=== PATIENT | male | born 1960 | race Caucasian/White ===

== ENCOUNTER 2020-01-30 01:30 | Outpatient (CLI) | payer BC, SELFPAY ==
[2020-01-31 14:16] LABS: SARS-CoV-2 RNA PCR Negative
== END 2020-01-30 01:31 | disposition home or self-care (01) ==
LOC: ANHCOVIDDT 01:30
PROVIDERS: Visit Provider Podiatrist Foot & Ankle Surgery
DX: Z01.818 Encounter for other preprocedural examination (principal); Z11.59 Encounter for screening for other viral diseases
CPT/HCPCS: 87635; C9803; U0003

== ENCOUNTER 2020-02-02 00:57 | Day surgery (SDC) | payer BC, SELFPAY ==
[2020-01-21 18:07] VITALS: BMI 19.8
--- NOTE | 2020-02-01 14:12 | WPDHPUPDATE1 ---
History and Physical Update Update Date/Time: 02/01/20 14:12 History and Physical has been reviewed, including an updated exam of the patient. There are NO changes in the patient's condition. Risks, benefits, and alternatives have been discussed and questions answered. Patient agrees to proceed with procedure.
--- NOTE | 2020-02-02 08:25 | P.PNAN_ITS ---
Anes - Initial Pre Proc Eval Procedure: Operation Date: 02/02/20 12:30 Proposed Procedures p Total Implant Arthroplasty Left First Metatarsal Phalangeal - Jake Condon DPM Date/Time: 02/02/20 08:25 Surgeon: Jake Condon DPM Pre Op Diagnosis: hallux rigidus Left Patient Data Age: 59 Gender: M Height: 1.73 m Weight: 58.97 kg Allergies Allergy/AdvReac Type Severity Reaction Status Date / Time No Known Allergies Allergy Verified 02/02/20 10:37 Home Medications Medication Instructions Recorded Confirmed Type Baby Aspirin 81 mg PO DAILY 01/21/20 01/21/20 History finasteride 5 mg PO DAILY 01/21/20 01/21/20 History simvastatin 20 mg PO DAILY 01/21/20 01/21/20 History Patient hx anesthesia problems: none Family hx anesthesia problems: none [facility] Past Medical History Medical History (Updated 02/02/20 @ 08:25 by Wai Ashton DO) Hyperlipidemia ANT (obstructive sleep apnea) CPAP Social History Social History Smoking status: Never smoker Living arrangements: with family Gender identity (if verbalized by the patient): Male Spiritual care concerns: No Anes - Eval Final PreProcedure Day of Procedure 02/02/20 08:25 Patient weight: thin Heart: regular rate and rhythm Lungs: clear to auscultation and normal air movement Airway: Mallampati scale class II Neurological: alert and oriented Last oral intake: >/= 8 hours ASA classification: III Anesthetic plan: proceed Anesthesia type and monitoring: general GIVS and standard monitoring Informed Consent: The patient's anesthetic plan and its attendant risks and benefits were discussed with the patient/family/POA. Questions were solicited and answers provided to the satisfaction of the patient/family/POA.
[2020-02-02 10:34] VITALS: BP 119/81; PULSE 69; RESP 16; TEMP 36.7; O2SAT 100
[2020-02-02] MEDS: LACTATED RINGERS 1,000 ML 30 ML IV CONT (11:00)
--- NOTE | 2020-02-02 11:00 | ECG_ITS ---
Measurements Intervals [place] Rate: 66 P: 52 GA: 187 QRS: 10 QRSD: 95 T: 38 QT: 379 QTc: 397 Interpretive Statements SINUS RHYTHM NORMAL ECG Electronically Signed On 02-02-2020 12:53:10 [employer] by Gurdeep Conley D.O.
--- NOTE | 2020-02-02 12:30 | PM.IMHP ---
H&P: HPI History of Present Illness Date/Time: 02/02/20 12:30 Chief complaint: hallux rigidus Left Narrative: Blaise Niño is a 59 year old male Review of Systems Review of Systems: Narrative: Hx. of HTN and BPH All systems reviewed & are unremarkable except as noted in HPI and below (HTN and BPH) Constitutional: Constitutional: Reports no additional constitutional complaints ENT: Reports system reviewed and no additional complaints, except as documented Musculoskeletal: Musculoskeletal: Reports arthralgias and Reports limited range of motion Comments: c/o pain left 1st mtp for 1 year Neurologic: Reports system reviewed and no additional complaints, except as documented Hematologic/Lymphatic: Hematologic/Lymphatic: Reports no additional hematologic/lymphatic complaints Allergic/Immunologic: Allergic/Immunologic: Reports no additional allergic/immunologic complaints [facility] Past Medical History Medical History (Updated 02/02/20 @ 08:25 by Wai Ashton DO) Hyperlipidemia ANT (obstructive sleep apnea) CPAP Social History Social History Smoking status: Never smoker Living arrangements: with family Gender identity (if verbalized by the patient): Male Spiritual care concerns: No Meds Home Medications and Allergies Home Medications Medication Instructions Recorded Confirmed Type Baby Aspirin 81 mg PO DAILY 01/21/20 01/21/20 History finasteride 5 mg PO DAILY 01/21/20 01/21/20 History simvastatin 20 mg PO DAILY 01/21/20 01/21/20 History cephalexin [Keflex] 500 mg PO Q8H #20 cap 02/02/20 Rx hydrocodone-acetaminophen [[place]] 1 tablet PO Q4H PRN #20 tablet 02/02/20 Rx Allergies Allergy/AdvReac Type Severity Reaction Status Date / Time No Known Allergies Allergy Verified 02/02/20 10:37 Vital Signs Vital Signs - 24 hr 02/02/20 10:34 Temperature 36.7 C Pulse Rate 69 Respiratory Rate 16 Blood Pressure 119/81 Pulse Oximetry 100 Exam Extrem: Left lower extremity: normal capillary refill Other: Pain and stiffness left 1st mtp Assessment and Plan Additional Plan cheilectomy with implant left 1st mtp under MAC
--- NOTE | 2020-02-02 12:35 | P.HP_ITS ---
H&P: HPI History of Present Illness Date/Time: 02/02/20 12:35 Chief complaint: hallux rigidus Left Narrative: Blaise Niño is a 59 year old male [facility] Past Medical History Medical History (Updated 02/02/20 @ 08:25 by Wai Ashton DO) Hyperlipidemia ANT (obstructive sleep apnea) CPAP Social History Social History Smoking status: Never smoker Living arrangements: with family Gender identity (if verbalized by the patient): Male Spiritual care concerns: No Meds Home Medications and Allergies Home Medications Medication Instructions Recorded Confirmed Type Baby Aspirin 81 mg PO DAILY 01/21/20 01/21/20 History finasteride 5 mg PO DAILY 01/21/20 01/21/20 History simvastatin 20 mg PO DAILY 01/21/20 01/21/20 History cephalexin [Keflex] 500 mg PO Q8H #20 cap 02/02/20 Rx hydrocodone-acetaminophen [[place]] 1 tablet PO Q4H PRN #20 tablet 02/02/20 Rx Allergies Allergy/AdvReac Type Severity Reaction Status Date / Time No Known Allergies Allergy Verified 02/02/20 10:37 Vital Signs Vital Signs - 24 hr 02/02/20 10:34 Temperature 36.7 C Pulse Rate 69 Respiratory Rate 16 Blood Pressure 119/81 Pulse Oximetry 100 Assessment and Plan Additional Plan Hallux limitus left 1st mtp for which a cheilectomy with joint implant to be performed under MAC
--- NOTE | 2020-02-02 12:36 | P.HP_ITS ---
H&P: HPI History of Present Illness Date/Time: 02/02/20 12:36 Chief complaint: hallux rigidus Left Narrative: Blaise Niño is a 59 year old male [facility] Past Medical History Medical History (Updated 02/02/20 @ 08:25 by Wai Ashton DO) Hyperlipidemia ANT (obstructive sleep apnea) CPAP Social History Social History Smoking status: Never smoker Living arrangements: with family Gender identity (if verbalized by the patient): Male Spiritual care concerns: No Meds Home Medications and Allergies Home Medications Medication Instructions Recorded Confirmed Type Baby Aspirin 81 mg PO DAILY 01/21/20 01/21/20 History finasteride 5 mg PO DAILY 01/21/20 01/21/20 History simvastatin 20 mg PO DAILY 01/21/20 01/21/20 History cephalexin [Keflex] 500 mg PO Q8H #20 cap 02/02/20 Rx hydrocodone-acetaminophen [[place]] 1 tablet PO Q4H PRN #20 tablet 02/02/20 Rx Allergies Allergy/AdvReac Type Severity Reaction Status Date / Time No Known Allergies Allergy Verified 02/02/20 10:37 Vital Signs Vital Signs - 24 hr 02/02/20 10:34 Temperature 36.7 C Pulse Rate 69 Respiratory Rate 16 Blood Pressure 119/81 Pulse Oximetry 100
--- NOTE | 2020-02-02 12:36 | WPDHPUPDATE1 ---
History and Physical Update Update Date/Time: 02/02/20 12:36 History and Physical has been reviewed, including an updated exam of the patient. There are NO changes in the patient's condition. Risks, benefits, and alternatives have been discussed and questions answered. Patient agrees to proceed with procedure.
--- NOTE | 2020-02-02 12:37 | WPDHPUPDATE1 ---
History and Physical Update Update Date/Time: 02/02/20 12:37 History and Physical has been reviewed, including an updated exam of the patient. There are NO changes in the patient's condition. Risks, benefits, and alternatives have been discussed and questions answered. Patient agrees to proceed with procedure.
[2020-02-02] MEDS: LIDOCAINE HCL 2% LOCAL INJ 20 ML VIAL 5 ML INFILTRATE (13:06)
[2020-02-02] MEDS: BUPIVACAINE HCL 0.5% PF 30 ML VIAL 5 ML INFILTRATE (13:06)
[2020-02-02 13:41] VITALS: BP 121/76; PULSE 82; RESP 16; O2SAT 94
[2020-02-02 14:10] VITALS: BP 121/81; PULSE 63; RESP 16
[2020-02-02] MEDS: oxyCODONE HCL (*CRX) 5 MG TAB IR PO (14:18)
[2020-02-02 14:40] VITALS: BP 130/86; PULSE 63; RESP 16
--- NOTE | 2020-02-05 09:26 | PM.PROC ---
Procedure Note - Detailed Date of procedure: 02/02/20 Pre-op diagnosis: hallux rigidus Left Hallux rigidus left Post-op diagnosis: same Procedure performed: Total implant arthroplasty left 1st metatarsophalangeal joint Description of procedure: The patient was brought to the operating room and placed in the supine position upon the surgical table at which time the aforementioned local anesthetic agents were given followed by sterile prep and wrapped in the usual aseptic fashion. After ascertaining adequate anesthesia had been obtained, and with the pneumatic tourniquet inflated about the left ankle, a dorsal linear incision centered over the left 1st metatarsophalangeal joint medial aspect an approximately 5 cm in length was created. The incision was deepened in the same plane with careful attention paid to all bleeders which were either clamped bovied or ligated as necessary. Next a periosteal capsular incision paralleling the original skin incision along its entire length was created. All periosteal capsular and collateral ligamentous tissues were then freed from about the 1st metatarsophalangeal joint revealing numerous loose osseous bodies as well as a large osteophyte on the dorsum of the 1st metatarsal head. These were removed via a rongeur and rotary bur and the wound was flushed with copious amounts of sterile saline. the joint space was then inspected and all cartilage was noted to be denuded from both surfaces of the joint. Next utilizing an oscillating saw the cartilaginous surface of the 1st metatarsal was removed and passed from the table. Attention was then directed to the proximal 25% of the proximal phalanx of the left hallux this was transversely osteotomy my eyes free from surrounding soft tissues and passed from the table. Utilizing a rotary bur and the appropriate broach for the Pratt 1st metatarsophalangeal joint the medullary canal of both the 1st metatarsal and proximal phalanx were reamed and prepared for the acceptance of a 4 S Pratt total 1st MTP implant. A 4 S Pratt implant trial Sizer was then put into the operative field and noted to be of excellent fit and correction. The trial Sizer was thus removed the wound flushed with copious amounts of sterile saline, and a 4 S Pratt total 1st MTP implant was placed into the appropriate position noted to be of excellent fit and correction and good range of motion noted as well. The periosteal capsular incision was closed utilizing a continuous suture of 3 0 Vicryl. Subcutaneous tissues were closed utilizing horizontal mattress fashion sutures of 4 0 Vicryl. The skin was closed utilizing a continuous subcuticular suture of 5 0 Vicryl. The pneumatic tourniquet was then deflated and normal capillary fill time and color returned to all digits of the left foot. The wound was dressed with sterile Adaptic sterile 4x4s and sterile [place] in a compressive type fashion. The aforementioned procedure took place under sterile technique and at no time was there a break in our sterile field. The patient left the operating room with vital signs stable vascular status intact and in apparent satisfactory postoperative condition. After a brief period of observation in the postanesthesia room the patient was discharged to home with the following instructions. 1. Limited activity to bathroom privileges only. 2. Resume regular home diet and home medications. 3. Call Dr. Condon at [phone] or [phone] if any questions, problems, or emergencies arise. Schedule a follow-up examination for 1 week. Implants: Pratt 4S total implant. Anesthesia: MAC Surgeon: Jake Condon DPM Estimated blood loss (mL): 3 Drains: No Packing: No Pathology: none sent Complications: No immediate complications Condition: stable Disposition: PACU
== END 2020-02-02 14:56 | disposition home or self-care (01) ==
PROVIDERS: Visit Provider Podiatrist Foot & Ankle Surgery
PROC: (CPT 28291; principal; 2020-02-02 12:30)
DX: M20.22 Hallux rigidus, left foot (principal); E78.5 Hyperlipidemia, unspecified; G47.33 Obstructive sleep apnea (adult) (pediatric)
CPT/HCPCS: 28291; 93005; A9270; J0690; J2250; J2704; J3010; J7120